=== PATIENT | female | born 1985 | race Caucasian/White ===

== ENCOUNTER 2016-07-21 13:51 | Emergency (ER) | payer OTHER ==
[~2016-07-21] VITALS: Ht 170.2 cm; Wt 70.0 kg
[~2016-07-21 13:51] MED LIST: NAPR550 PO; UNKNOWN MED
[2016-07-21 13:54] VITALS: BP 124/80; PULSE 104; RESP 12; TEMP 98.4; O2SAT 98
[2016-07-21] MEDS ORDERED: MIREIUD I-UTERINE (14:17)
[2016-07-21] MEDS ORDERED: ADD MED (14:22)
[2016-07-21] MEDS ORDERED: IBUPROFEN 800 MG TAB PO ONE (14:30)
[2016-07-21] MEDS ORDERED: METHOCARBAMOL 500 MG TAB PO ONE (14:30)
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
[2016-07-21] MEDS ORDERED: ROBA750T PO (15:23)
[2016-07-21] MEDS ORDERED: IBUP800T23 PO (15:23)
== END 2016-07-21 16:18 | disposition home or self-care (01) ==
LOC: NEPB 13:51
DX: S16.1XXA Strain of muscle, fascia and tendon at neck level, initial encounter (principal); M54.5 Low back pain; V49.49XA Driver injured in collision with other motor vehicles in traffic accident, initial encounter
CPT/HCPCS: 72100; 72125

== ENCOUNTER 2016-10-26 11:11 | Emergency (ER) | payer OTHER ==
[~2016-10-26] VITALS: Ht 170.2 cm; Wt 70.5 kg
[~2016-10-26 11:11] MED LIST changes: +ADD MED; +IBUP800T23 PO; +MIREIUD I-UTERINE; -NAPR550 PO; +ROBA750T PO; -UNKNOWN MED
[2016-10-26 11:13] VITALS: BP 116/70; PULSE 114; RESP 20; TEMP 97.7; O2SAT 97
[2016-10-26 11:26] VITALS: BP 120/63; PULSE 110; RESP 20; O2SAT 97
[2016-10-26] MEDS ORDERED: PERC5TAB12 PO (11:34)
[2016-10-26] MEDS ORDERED: KETOROLAC TROMETHAMINE 30 MG/ML (IVP) VIAL IV PUSH ONE (12:00)
[2016-10-26] MEDS ORDERED: METHOCARBAMOL 500 MG TAB PO ONE (12:00)
[2016-10-26] MEDS ORDERED: ONDANSETRON HCL 4 MG/2 ML VIAL IV PUSH ONE (12:00)
[2016-10-26] MEDS ORDERED: MORPHINE SULFATE 4 MG/ML INJ IV PUSH ONE (12:00)
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
--- NOTE | 2016-10-26 13:17 | RADRPT ---
EXAM DATE/TIME: 10/26/2016 12:36 [facility] COMPARISON: CT CERVICAL SPINE W/O CONTRAST, July 21, 2016, 14:53. INDICATIONS : Back pain. MEDICAL HISTORY : None. SURGICAL HISTORY : section. ENCOUNTER: Initial ACUITY: 4-6 months PAIN SCORE: 5/10 LOCATION: Paraspinal TECHNIQUE: Multiplanar, multisequence MRI examination of the cervical spine was performed. FINDINGS: VERTEBRAE: Normal vertebral body height. Homogeneous marrow signal. ALIGNMENT: No evidence of subluxation. CORD: Normal configuration and signal. POST FOSSA: The cerebellar tonsils are normal in position. C2-C3: The thecal sac has a normal configuration. There is no evidence of disc herniation or spinal canal s tenosis. The neural foramina are patent bilaterally. C3-C4: The thecal sac has a normal configuration. There is no evidence of disc herniation or spinal canal s tenosis. The neural foramina are patent bilaterally. C4-C5: The thecal sac has a normal configuration. There is no evidence of disc herniation or spinal canal s tenosis. The neural foramina are patent bilaterally. C5-C6: The thecal sac has a normal configuration. There is no evidence of disc herniation or spinal canal s tenosis. The neural foramina are patent bilaterally. C6-C7: The thecal sac has a normal configuration. There is no evidence of disc herniation or spinal canal s tenosis. The neural foramina are patent bilaterally. C7-T1: The thecal sac has a normal configuration. There is no evidence of disc herniation or spinal canal s tenosis. The neural foramina are patent bilaterally. CONCLUSION: Normal examination. Ruben Dias MD on October 26, 2016 at 13:14 Board Certified Radiologist. This report was verified electronically.
[2016-10-26 13:21] VITALS: RESP 16
--- NOTE | 2016-10-26 13:30 | RADRPT ---
EXAM DATE/TIME: 10/26/2016 12:36 [facility] COMPARISON: SPINE LUMBAR LTD (AP & LAT), July 21, 2016, 14:53. MRI THORACIC SPINE W/O CONTRAST, October 26, 2016 , 12:36. INDICATIONS : Back pain. MEDICAL HISTORY : None. SURGICAL HISTORY : section. ENCOUNTER: Initial ACUITY: 4-6 months PAIN SCORE: 5/10 LOCATION: Paraspinal TECHNIQUE: Multiplanar multisequence MRI of the lumbar spine was performed without contrast. FINDINGS: The most caudal appearing lumbar vertebra is numbered as L5. There are Schmorl nodes present at the s uperior and inferior endplate of L3, superior endplate of L2, L1, and inferior endplates of T11 and L 1. There is mild disc desiccation. Bone marrow signal intensity is normal. Mild facet hypertrophy at L4-5. VERTEBRAE: Homogeneous signal. Normal alignment. CONUS: Normal level and configuration. T12-L1: The thecal sac has a normal diameter. No evidence of disc bulge or protrusion. The neural foramina are patent bilaterally. L1-L2: The thecal sac has a normal diameter. No evidence of disc bulge or protrusion. The neural foramina are patent bilaterally. L2-L3: The thecal sac has a normal diameter. No evidence of disc bulge or protrusion. The neural foramina are patent bilaterally. L3-L4: The thecal sac has a normal diameter. No evidence of disc bulge or protrusion. The neural foramina are patent bilaterally. L4-L5: The thecal sac has a normal diameter. No evidence of disc bulge or protrusion. The neural foramina are patent bilaterally. L5-S1: The thecal sac has a normal diameter. No evidence of disc bulge or protrusion. The neural foramina are patent bilaterally. CONCLUSION: 1. Minimal degenerative changes. No canal or foraminal narrowing. Ruben Dias MD on October 26, 2016 at 13:28 Board Certified Radiologist. This report was verified electronically.
[2016-10-26] MEDS ORDERED: PRED20 PO (14:02)
[2016-10-26] MEDS ORDERED: ROBA750T PO (14:02)
[2016-10-26] MEDS ORDERED: HYDR-3533 PO (14:02)
[2016-10-26] MEDS ORDERED: DICL75TA PO (14:02)
[2016-10-26 14:08] VITALS: BP 124/78; TEMP 97.8
== END 2016-10-26 14:08 | disposition home or self-care (01) ==
LOC: NEPD 11:11
DX: M54.5 Low back pain (principal); M54.2 Cervicalgia; R20.2 Paresthesia of skin; R00.0 Tachycardia, unspecified; V89.2XXD Person injured in unspecified motor-vehicle accident, traffic, subsequent encounter
CPT/HCPCS: 72141; 72146; 72148; 84703; 96374; 96375; 99283; J1885; J2270; J2405

== ENCOUNTER 2017-09-21 20:46 | Emergency (ER) | payer SELFPAY ==
[~2017-09-21] VITALS: Ht 170.2 cm; Wt 80.2 kg
[~2017-09-21 20:46] MED LIST changes: -ADD MED; +DICL75TA PO; +HYDR-3533 PO; -IBUP800T23 PO; -MIREIUD I-UTERINE; +PERC5TAB12 PO; +PRED20 PO
[2017-09-21 21:05] VITALS: BP 133/65; PULSE 89; RESP 18; TEMP 98.3; O2SAT 99
== END 2017-09-21 22:50 | disposition left against medical advice (07) ==
LOC: PHED 20:46
DX: Z53.21 Procedure and treatment not carried out due to patient leaving prior to being seen by health care provider (principal); R07.81 Pleurodynia; R06.89 Other abnormalities of breathing
CPT/HCPCS: 99281